=== PATIENT | female | born 1940 | race Caucasian/White ===

== ENCOUNTER → 2019-02-28 | Outpatient (CLI) | payer MEDICARE, BC ==
[~2019-02-28] MED LIST: DIAZ5TAB; DILT360C; FLUT1DIS23; OLME1TAB25; SIMV20TA
--- NOTE | 2019-02-28 14:36 | CONS ---
Assessment/Plan Assessment/Plan Hospital Course (Demo Recall) This is a 78-year-old female presenting with pain over her right SI joint and posterior superior iliac spine. 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 However osteoarthritis when she is doing her normal activities of daily living she has tolerable groin pain. Her main complaint when asked multiple times is her pain in her posterior pelvis over her SI joint and posterior superior iliac spine. At this time recommending treatment for her SI joint arthritis and inflammation as well as physical therapy. If and when the symptoms of her hip arthritis predominates we can further discuss surgery. Patient given referral to pain management group that does SI joint and lumbar spine injections. She is given a physical therapy prescription. She should follow-up as needed. Consultation Date/Type/Reason Admit Date/Time Date of Consultation: Feb 28, 2019 Reason for Consultation Right hip pain Date/Time of Note DATE: 02/28/19 TIME: 14:25 Hx of Present Illness This is a 78-year-old female who presents with a history of right hip pain. Patient states the pain is in the posterior pelvis. She does admit to groin pain with movement of the hip however her main complaint today is pain in the posterior aspect of the pelvis. The pain is primarily weight bearing and does not radiate. It is described as a dull ache. The pain is rated as a 10/10 with activity and 5/10 at rest. Walking tolerance is very limited. No external support. The patient does admit to a limp. Navigates stairs with use of the banister. Some difficulty with shoes and socks. No history of childhood or adolescent hip disease. Has risk factors for avascular necrosis. There are symptoms to suggest referred pain from the back without radicular symptoms. Treatment to date has included physical therapy for her hip. Patient denies any core strengthening type exercises. The patient states that treatment to date has not provided adequate relief of symptoms, prompting consultation regarding operative and nonoperative treatment for right hip pain. Duration: 6 months Injury: No Walking tolerance: Very limited Limp: Yes Support: No Stairs: Uses banister Physical Therapy: yes Injections: No NSAID's: No Prior surgery: No Back pain: Yes Knee pain: No Risk of AVN : Yes, history of alcohol abuse. Sober for 8 years Patient denies fever, chills, shortness of breath, chest pain, nausea/vomiting, constipation, diarrhea, numbness, and tingling. Past Medical History Hypertension Arrhythmia Asthma Hearing loss Visual loss History of alcohol abuse Home Meds Reported Medications Diazepam* (Valium*) 5 Mg Tablet 03/26/11 Olmesartan-Hydrochlorothiazide (Benicar HCT) 1 Tab Tablet 03/26/11 Diltiazem Hcl* (Cardizem CD*) 360 Mg Cap.sr.24h 03/26/11 Simvastatin* (Zocor*) 20 Mg Tablet 03/26/11 Fluticasone/Salmeterol (Advair 250-50 Diskus) 1 Disk W/Dev Disk.w.dev 03/26/11 Allergies: Coded Allergies: Amoxicillin (Verified Allergy, Mild, RASH, 03/28/11) Sulfa (Sulfonamides) (Verified Allergy, Mild, RASH, 03/28/11) Past Surgical History Left total knee arthroplasty Periprostatic fracture of left total knee arthroplasty status post ORIF with int ramedullary nail Family History Significant Family History: no pertinent family hx Social History Alcohol Use: sober (8 years) Smoking Status: Never smoker Drug Use: none Exam/Review of Systems Exam Vitals Weight: 142 pounds Height: 5 foot Temperature: 98.4 Heart Rate: 76 Blood Pressure: 153/95 Respiratory Rate: 14 Exam General: Awake, alert, in no acute distress, pleasant and cooperative Heart: regular rhythm Lungs: breathing comfortably, no tachypnea or dyspnea Musculoskeletal: Well developed female in no apparent distress. Gait demonstrates an antalgic component and stiff hip component and mild short leg component. Standing, the pelvis is oblique and supine there is a true leg length discrepancy, with the right leg less than 0.5 cm short. + tenderness over trochanteric bursa or IT band. There is exquisite tenderness over the right SI joint and posterior superior iliac spine. ----- Range of motion: Flexion: 90 Extension: 0 Internal rotation: 0 External rotation: 30 Abduction: 30 Adduction: 0 Range of motion of the lumbar spine very limited in all planes. ----- Sitting there is no pelvic obliquity. Pain at the extremes of motion of the affected hip. Skin was intact throughout both lower extremities. Sensation intact to light touch in a sural, saphenous, deep peroneal, superficial peroneal, medial and lateral plantar nerve distribution. Neurovascular exam showed 5/5 strength in the abductors, quads, EHL/tibialis anterior/gastroc. Normal and symmetrical pulses were palpated in both the dorsalis pedis and posterior tibial arteries. There is no sign of venous stasis. Imaging Imaging The patient received a full set of films and personally reviewed by myself today in clinic including an AP pelvis and an AP and lateral of the affected hip. The hip is reduced. There is complete loss of joint space. There is osteophyte formation. There is subchondral sclerosis. There are subchondral cysts. There is no significant deformity of the the proximal femur, femoral neck, or acetabulum. Lumbar spine partially visualized on AP pelvis. There is significant deg enerative disc disease of the lumbar spine. The pelvis is in continuity. Bone quality radiographically: CAMERON Monson MD Feb 28, 2019 14:36
--- NOTE | 2019-03-02 17:34 | RADRPT ---
PROCEDURE: XR Right hip and pelvis. CLINICAL INDICATION: Right hip pain and pelvic pain. TECHNIQUE: 3 views. Frontal pelvis. Frontal and lateral right hip. COMPARISON: None. FINDINGS: There is no fracture or dislocation. The soft tissues are normal. There are degenerative changes of both hips with joint space narrowing, osteophytes, subchondral scle rosis. Right is worse than left. There are subchondral cysts on the right. There is no lytic or blastic lesion. There is no radiopaque foreign body. IMPRESSION: 1. Severe degenerative changes of both hips with right worse than left. 2. Otherwise unremarkable study. RPTAT: QQ .Doni Gunter MD, MD Date Time Electronically viewed and signed by .Doni Gunter MD, MD on 03/02/2019 17:33 .R/
== END | disposition home or self-care (01) ==
LOC: HKI 13:54
PROVIDERS: ATTEND Orthopaedic Surgery Adult Reconstructive Orthopaedic Surgery
DX: M47.898 Other spondylosis, sacral and sacrococcygeal region (principal); M25.551 Pain in right hip
CPT/HCPCS: 73502; G0463